=== PATIENT | female | born 1935 | race Caucasian/White ===

== ENCOUNTER 2018-12-15 19:06 | Inpatient (IN) | payer MEDICARE, OTHER | END 2018-12-17 12:56 | disposition home or self-care (01) | LOC: ER FS 19:06 → ICU 21:45 | DX: I21.4 Non-ST elevation (NSTEMI) myocardial infarction (principal); I13.0 Hypertensive heart and chronic kidney disease with heart failure and stage 1 through stage 4 chronic kidney disease, or unspecified chronic kidney disease; I50.21 Acute systolic (congestive) heart failure; N18.9 Chronic kidney disease, unspecified; I42.0 Dilated cardiomyopathy; I48.91 Unspecified atrial fibrillation; J44.9 Chronic obstructive pulmonary disease, unspecified; Z66 Do not resuscitate; I25.10 Atherosclerotic heart disease of native coronary artery without angina pectoris; E03.9 Hypothyroidism, unspecified; R73.9 Hyperglycemia, unspecified; R41.3 Other amnesia; H90.5 Unspecified sensorineural hearing loss; J34.89 Other specified disorders of nose and nasal sinuses; R05 Cough; Z95.810 Presence of automatic (implantable) cardiac defibrillator ==

== ENCOUNTER 2019-03-25 18:12 | Emergency (ER) | payer MEDICARE, OTHER ==
[~2019-03-25] VITALS: Ht 157 cm; Wt 62.0 kg
[~2019-03-25 18:12] MED LIST: ALEN70TA2 PO; AMLO5TAB9 PO; APIX2.5T PO; ATOR20TA66 PO; FURO40TA4 PO; ISOS30TA3 PO; LEVO75TA6 PO; LISI-556 PO; METO-370 PO; NF-METHI10 PO; NITR-65 PO
[2019-03-25] MEDS ORDERED: DILTIAZEM 25 MG/5 ML INJ (CARDIZEM) VIAL IVP ONE (18:45)
[2019-03-25 18:47] LABS: HEMATOCRIT 38 % (35-52); HEMOGLOBIN 12.1 G/DL (11.5-16.0); MEAN CORPUSCULAR HEMOGLOBIN 30 PG (25-34); MEAN CORPUSCULAR VOLUME 93 FL (80-99)
[2019-03-25 18:48] LABS: BASOPHILS % (AUTO) 1 % (0-10); EOSINOPHILS % (AUTO) 1 % (0-10); LYMPHOCYTES % (AUTO) 22 % (12-44); MEAN CORPUSCULAR HGB CONC 32 G/DL (32-36); MEAN PLATELET VOLUME 11.9 FL (7.4-10.4); MONOCYTES % (AUTO) 9 % (0-12); NEUTROPHILS % (AUTO) 67 % (42-75); PLATELET COUNT 273 10^3/uL (130-400); RED CELL DISTRIBUTION WIDTH 15.4 % (10.0-14.5)
[2019-03-25 18:49] LABS: BASOPHILS # (AUTO) 0.1 10^3/uL (0.0-0.1); EOSINOPHILS # (AUTO) 0.1 10^3/uL (0.0-0.3); LYMPHOCYTES # (AUTO) 1.5 X 10^3 (1.0-4.0); MONOCYTES # (AUTO) 0.6 X 10^3 (0.0-1.0); NEUTROPHILS # (AUTO) 4.7 X 10^3 (1.8-7.8)
[2019-03-25 18:50] LABS: INR 1.4 (0.8-1.4); PROTHROMBIN TIME PATIENT 17.9 SEC (12.2-14.7)
--- NOTE | 2019-03-25 18:58 | Diagnostic Imaging Report ---
INDICATION: Shortness of air. Tachycardia. History of atrial fibrillation. COMPARISON: 12/17/2018. FINDINGS: Single frontal radiographic view of the chest was obtained and shows moderate cardiomegaly. Pulmonary vasculature is within normal limits. Lungs show interval improved aeration. There is some minimal residual patchy bibasilar airspace opacity. No large effusion or pneumothorax is seen. Left-sided AICD is noted. Osseous structures show no gross acute abnormalities. IMPRESSION: 1. Overall improved aeration, but with mild residual patchy bibasilar atelectasis. Some component of underlying infiltrate cannot be excluded. 2. Cardiomegaly, but no evidence of overt failure. Dictated by: Dictated on workstation # [id number]
[2019-03-25] MEDS ORDERED: meTOprolol TARTRATE 25 MG (LOPRESSOR) TABLET PO ONE (19:00)
[2019-03-25 19:10] LABS: BILIRUBIN,TOTAL 0.7 MG/DL (0.1-1.0); CALCIUM 9.3 MG/DL (8.5-10.1); CREATININE SERUM 1.73 MG/DL (0.60-1.30); TOTAL PROTEIN 6.7 GM/DL (6.4-8.2)
--- NOTE | 2019-03-25 19:10 | ED Cardiac General ---
History of Present Illness General Chief Complaint: Cardiac/General Problems Stated Complaint: SOA Nursing Triage Note: PT HAS FELT SHORT OF BREATH THE LAST COUPLE OF DAYS. PT HAS A HX OF AFIB. Source: patient, family Exam Limitations: no limitations History of Present Illness Date Seen by Provider: Mar 25, 2019 Time Seen by Provider: 18:00 Initial Comments Patient came into the emergency room with complaint of having shortness of breath for the past 2 days. She told about that to her daughter who brought her to the emergency room. She does have a history of A. fib and on the monitor patient was in A. fib with rapid ventricular rate around 140. Patient had low blood pressure few months ago and so all her blood pressure medications has been stopped including metoprolol. Currently patient is not on any blood pressure medicine and was not on any rate control medications. She has been saturating at 94% on room air. She does take a lactose twice daily. She denies having any chest pain, abdominal pain, unilateral swelling of the legs or leg cramps and denies having any increase in swelling of the legs. Timing/Duration: 1-2 days Severity: mild Modifying Factors: improves with movement Associated Systoms: No Chest Pain, No Cough, No Diaphoresis, No Fever/Chills, No Headaches, No Malaise, No Nausea/Vomiting; Shortness of Air Allergies and Home Medications Allergies Coded Allergies: Penicillins (Verified Allergy, Unknown, 12/15/18) Home Medications Alendronate Sodium 70 Mg Tablet, 70 MG PO Ojeda, (Reported) LAST FILLED #4 Amlodipine Besylate 5 Mg Tablet, 5 MG PO DAILY, (Reported) Apixaban 2.5 Mg Tablet, 2.5 MG PO BID Prescribed by: ALEX CLARK on 12/17/18 1134 Atorvastatin Calcium 20 Mg Tablet, 20 MG PO HS, (Reported) LAST FILLED #90 05-22-17 Furosemide 40 Mg Tablet, 20 MG PO DAILY, (Reported) LAST FILLED #45 05-01-18 & 24 LEFT IN THE BOTTLE TAKES 1/2 (40MG) TABLET Isosorbide Mononitrate 30 Mg Tab.er.24h, 30 MG PO DAILY, (Reported) LAST FILLED #90 01-20-18 & 15 TABS LEFT IN BOTTLE Levothyroxine Sodium 75 Mcg Tablet, 75 MCG PO DAILY, (Reported) LAST FILLED #30 10-15-18 & 22 LEFT IN BOTTLE Lisinopril 5 Mg Tablet, 5 MG PO DAILY, (Reported) LAST FILLED #30 10-15-18 & 21 LEFT IN THE BOTTLE Methimazole 10 Mg Tab, 10 MG PO DAILY, (Reported) LAST FILLED #90 05-01-18 Metoprolol Succinate 50 Mg Tab.er.24h, 50 MG PO DAILY, (Reported) LAST FILLED #90 01-15-18 Nitrofurantoin Monohyd/M-Cryst 100 Mg Capsule, 1 TAB PO BID Prescribed by: ALEX CLARK on 12/17/18 1310 Review of Systems Review of Systems Constitutional: see HPI EENTM: No Symptoms Reported Respiratory: Shortness of Air Cardiovascular: Denies Chest Pain; Irregular Heart Rate Gastrointestinal: Denies See HPI Genitourinary: Denies See HPI Musculoskeletal: No see HPI Skin: no symptoms reported Psychiatric/Neurological: No Symptoms Reported Endocrine: No Symptoms Reported Hematologic/Lymphatic: No Symptoms Reported Past Teiigdc-Hajqhr-Odxigb Hx Patient Social History Alcohol Use: Denies Use Recreational Drug Use: No Smoking Status: Former Smoker Type Used: Cigarettes 2nd Hand Smoke Exposure: No Recent Foreign Travel: No Contact w/Someone Who Travel: No Recent Infectious Disease Expo: No Physical Abuse: No Sexual Abuse: No Mistreated: No Fear: No Immunizations Up To Date Date of Pneumonia Vaccine: Jan 01, 2015 Seasonal Allergies Seasonal Allergies: No Past Medical History Surgeries: Yes (Defibrillator) Cardiac, Defibrillator Respiratory: No Cardiac: No Atrial Fibrillation, Cardiomyopathy, Coronary Artery Disease, Hypertension Neurological: No Genitourinary: No Gastrointestinal: No Musculoskeletal: No Endocrine: Yes Hypothyroidsim HEENT: No Cancer: No Psychosocial: No Integumentary: No Physical Exam Vital Signs Vital Signs - First Documented 03/25/19 18:29 Temp 36.5 Pulse 147 Resp 22 B/P (MAP) 133/75 (94) Pulse Ox 95 O2 Delivery Room Air Capillary Refill : Less Than 3 Seconds Height, Weight, BMI Height: '" Weight: 131lbs. 1.0oz. [id number]; 25.00 BMI Method: General Appearance: No Apparent Distress, WD/WN HEENT: PERRL/EOMI, TMs Normal, Normal ENT Inspection, Pharynx Normal Neck: Full Range of Motion, Normal Inspection, Non Tender Respiratory: Chest Non Tender, Lungs Clear, Normal Breath Sounds, No Accessory Muscle Use, No Respiratory Distress Cardiovascular: No Edema, No Gallop, No JVD, No Murmur, Normal Peripheral Pulses, Irregularly Irregular Gastrointestinal: Normal Bowel Sounds, No Organomegaly, No Pulsatile Mass, Non Tender Extremity: Normal Capillary Refill, Normal Inspection, Normal Range of Motion, Non Tender, No Calf Tenderness, No Pedal Edema Neurologic/Psychiatric: Alert, Oriented x3, No Motor/Sensory Deficits, Normal 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, 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 Norm as Tested Skin: Normal Color, Warm/Dry Progress/Results/Core Measures Results/Orders Lab Results Laboratory Tests Test 03/25/19 18:27 Range/Units White Blood Count 7.0 4.3-11.0 10^3/uL Red Blood Count 4.08 L 4.35-5.85 10^6/uL Hemoglobin 12.1 11.5-16.0 G/DL Hematocrit 38 35-52 % Mean Corpuscular Volume 93 80-99 FL Mean Corpuscular Hemoglobin 30 25-34 PG Mean Corpuscular Hemoglobin Concent 32 32-36 G/DL Red Cell Distribution Width 15.4 H 10.0-14.5 % Platelet Count 273 130-400 10^3/uL Mean Platelet Volume 11.9 H 7.4-10.4 FL Neutrophils (%) (Auto) 67 42-75 % Lymphocytes (%) (Auto) 22 12-44 % Monocytes (%) (Auto) 9 0-12 % Eosinophils (%) (Auto) 1 0-10 % Basophils (%) (Auto) 1 0-10 % Neutrophils # (Auto) 4.7 1.8-7.8 X 10^3 Lymphocytes # (Auto) 1.5 1.0-4.0 X 10^3 Monocytes # (Auto) 0.6 0.0-1.0 X 10^3 Eosinophils # (Auto) 0.1 0.0-0.3 10^3/uL Basophils # (Auto) 0.1 0.0-0.1 10^3/uL Prothrombin Time 17.9 H 12.2-14.7 SEC INR Comment 1.4 0.8-1.4 Sodium Level 142 135-145 MMOL/L Potassium Level 4.0 3.6-5.0 MMOL/L Chloride Level 104 98-107 MMOL/L Carbon Dioxide Level 20 L 21-32 MMOL/L Anion Gap 18 H 5-14 MMOL/L Blood Urea Nitrogen 37 H 7-18 MG/DL Creatinine 1.73 H 0.60-1.30 MG/DL Estimat Glomerular Filtration Rate 28 BUN/Creatinine Ratio 21 Glucose Level 128 H 70-105 MG/DL Calcium Level 9.3 8.5-10.1 MG/DL Corrected Calcium 9.3 8.5-10.1 MG/DL Total Bilirubin 0.7 0.1-1.0 MG/DL Aspartate Amino Transf (AST/SGOT) 32 5-34 U/L Alanine Aminotransferase (ALT/SGPT) 40 0-55 U/L Alkaline Phosphatase 145 H 40-136 U/L Troponin I < 0.30 <0.30 NG/ML Pro-B-Type Natriuretic Peptide 9835.0 H <75.0 PG/ML Total Protein 6.7 6.4-8.2 GM/DL Albumin 4.0 3.2-4.5 GM/DL My Orders Orders - IMER MCGOWAN MD Ekg Tracing (03/25/19 18:34) Cbc With Automated Diff (03/25/19 18:33) Chest 1 View Ap/Pa Only (03/25/19 18:33) Comprehensive Metabolic Panel (03/25/19 18:33) Protime With Inr (03/25/19 18:33) Monitor-Rhythm Ecg Trace Only (03/25/19 18:33) Ed Iv/Invasive Line Start (03/25/19 18:33) Troponin I Fs (03/25/19 18:33) Diltiazem Injection (Cardizem Injection) (03/25/19 18:45) Thyroid Stimulating Hormone (03/25/19 18:39) Probnp Fs (03/25/19 18:39) Metoprolol Tartrate (Ir) Tab (Lopressor (03/25/19 19:00) Medications Given in ED Current Medications Medications Dose Ordered Sig/Barbra Route Start Time Stop Time Status Last Admin Dose Admin Diltiazem HCl 10 mg ONCE ONCE IVP 03/25/19 18:45 03/25/19 18:46 DC 03/25/19 18:40 10 MG Metoprolol Tartrate 25 mg ONCE ONCE PO 03/25/19 19:00 03/25/19 19:01 DC 03/25/19 19:03 25 MG Vital Signs/I&O 12/23/19 12/23/19 18:29 18:45 Temp 36.5 Pulse 147 105 Resp 22 B/P (MAP) 133/75 (94) Pulse Ox 95 O2 Delivery Room Air Blood Pressure Mean: 94 Progress Progress Note : Time: 19:50 Progress Note Patient had a 10 mg of IV Cardizem and was given 25 mg of by mouth metoprolol and her heart rate has been between 9200 and she was in the pacemaker rhythm. Ad vised to the daughter that she needs to be restarted on her metoprolol to keep her heart rate Control. Informed about the lab results and x-ray results. She feels comfortable taking her home. Initial ECG Rhythm: A Fib/Flutter Initial ECG Impression: Nonspecific Changes Initial ECG Comparisson: No Previous ECG Available Departure Impression Primary Impression: Atrial fibrillation Qualified Codes: I48.19 - Other persistent atrial fibrillation Disposition: HOME, SELF-CARE Condition: Improved Departure-Patient Inst. Decision time for Depature: 19:51 Referrals: [facility] (PCP/Family) Primary Care Physician Patient Instructions: Atrial Fibrillation (DC) Add. Discharge Instructions: Follow-up with your primary care doctor next week. Take Metoprolol 25 mg by mouth twice a day. Return to the emergency room if symptoms worsens or is any concern. All discharge instructions reviewed with patient and/or family. Voiced understanding. Scripts Metoprolol Tartrate (Metoprolol Tartrate) 25 Mg Tablet 25 MG PO BID, #60 TAB Prov: IMER MCGOWAN MD 03/25/19 IMER MCGOWAN MD Mar 25, 2019 19:10
[2019-03-25] MEDS ORDERED: METO-333 PO (19:53)
[2019-03-25 20:05] VITALS: BP 123/73
== END 2019-03-25 20:06 | disposition home or self-care (01) ==
LOC: EDUNIT# 18:12 → ER FS 18:14
DX: I48.91 Unspecified atrial fibrillation (principal); I10 Essential (primary) hypertension; I25.10 Atherosclerotic heart disease of native coronary artery without angina pectoris; E03.9 Hypothyroidism, unspecified; Z88.0 Allergy status to penicillin; Z79.01 Long term (current) use of anticoagulants; Z87.891 Personal history of nicotine dependence; Z95.810 Presence of automatic (implantable) cardiac defibrillator
CPT/HCPCS: 36415; 71045; 80053; 83880; 84443; 84484; 85025; 85610; 93005; 93041; 96374

== ENCOUNTER 2019-03-27 16:55 | Inpatient (IN) | payer MEDICARE, OTHER ==
[~2019-03-27] VITALS: Ht 152.4 cm; Wt 57.7 kg
[~2019-03-27 16:55] MED LIST changes: +METO-333 PO
[2019-03-27] MEDS ORDERED: NS IV 500 ML 500 ML IV SCH (17:30)
[2019-03-27 17:56] LABS: HEMATOCRIT 40 % (35-52); HEMOGLOBIN 12.5 G/DL (11.5-16.0); LYMPHOCYTES % (AUTO) 12 % (12-44); MEAN CORPUSCULAR HEMOGLOBIN 30 PG (25-34); MEAN CORPUSCULAR HGB CONC 32 G/DL (32-36); MEAN CORPUSCULAR VOLUME 95 FL (80-99); MEAN PLATELET VOLUME 12.3 FL (7.4-10.4); MONOCYTES % (AUTO) 8 % (0-12); PLATELET COUNT 288 10^3/uL (130-400); RED CELL DISTRIBUTION WIDTH 16.4 % (10.0-14.5); WHITE BLOOD COUNT 8.4 10^3/uL (4.3-11.0)
[2019-03-27 17:57] LABS: BASOPHILS % (AUTO) 0 % (0-10); EOSINOPHILS % (AUTO) 0 % (0-10); MONOCYTES # (AUTO) 0.6 X 10^3 (0.0-1.0); NEUTROPHILS # (AUTO) 6.7 X 10^3 (1.8-7.8); NEUTROPHILS % (AUTO) 80 % (42-75)
[2019-03-27 18:19] LABS: ALBUMIN 3.8 GM/DL (3.2-4.5); BILIRUBIN,TOTAL 1.2 MG/DL (0.1-1.0); CALCIUM 9.3 MG/DL (8.5-10.1); CREATININE SERUM 3.1 MG/DL (0.60-1.30); POTASSIUM 4.6 MMOL/L (3.6-5.0); TOTAL PROTEIN 6.6 GM/DL (6.4-8.2)
[2019-03-27] MEDS ORDERED: fentaNYL INJECTION 100 MCG/2 ML AMP IVP STA (18:21)
--- NOTE | 2019-03-27 18:22 | Diagnostic Imaging Report ---
PROCEDURE: CT abdomen and pelvis without contrast. TECHNIQUE: Multiple contiguous axial images were obtained through the abdomen and pelvis without the use of intravenous contrast. Auto Exposure Controls were utilized during the CT exam to meet ALARA standards for radiation dose reduction. INDICATION: Generalized abdominal pain and back pain, two days history. FINDINGS: Trace abdominal and small-volume pelvic free fluid nonloculated. No loculated fluid collection is found. There is free fluid adjacent to the caudal tip of the right hepatic lobe with right upper quadrant subhepatic inflammatory changes and edema peripheral to the at least partially contracted and likely thick-walled gallbladder. No visualized radiodense intraluminal stone; however, gallbladder ultrasound may be of further benefit. The colon appears nonacute. There is no diverticulitis or appendicitis. There are noninflamed sigmoid diverticula. Uterus is absent. There is no adnexal lesion. There is some renal atrophy without hydronephrosis. There is nonaneurysmal aortoiliac atherosclerosis. There are small basilar pleural effusions nonloculated. There is no bile duct dilatation. The spleen is negative. The pancreas appears nonacute. There is a hyperdense nodule posteriorly at the level of the right labia majora 3.2 x 2.1 cm suggestive of a Bartholin's cyst with a relatively high intracystic proteinaceous component. No adjacent inflammatory changes to suggest its superimposed infection. IMPRESSION: 1. Right upper quadrant inflammatory changes with small-volume nonloculated free fluid. There is a suggestion of thickening of the manjarrez of the gallbladder without visualized stone or obvious biliary dilatation. Consider gallbladder ultrasound as further evaluation. 2. Noninflamed sigmoid diverticulosis. 3. Probable right-sided Bartholin's gland cyst without secondary features of its superimposed infection. 4. Nonobstructive renal atrophy and nonaneurysmal atherosclerosis. Dictated by: Dictated on workstation # [id number]
[2019-03-27 18:25] LABS: CLARITY,URINE CLOUDY; COLOR,URINE DARK YELLOW; GLUCOSE, URINE (UA) NEGATIVE (NEGATIVE); KETONES,URINE NEGATIVE (NEGATIVE); NITRITE,URINE NEGATIVE (NEGATIVE); PH,URINE 5.5 (5-9); PROTEIN,URINE 3+ (NEGATIVE)
[2019-03-27 18:26] LABS: BACTERIA,URINE LARGE /HPF; LEUKOCYTE ESTERASE ,URINE NEGATIVE (NEGATIVE); RBC,URINE 0-2 /HPF; SQUAMOUS EPITHELIAL CELL,UR >50 /HPF
[2019-03-27] MEDS ORDERED: ONDANSETRON 4 MG/2 ML (SDV) Z0FRAN IVP ONE (18:30)
[2019-03-27 18:32] LABS: BILIRUBIN,URINE 2+ (NEGATIVE)
--- NOTE | 2019-03-27 18:40 | ED General ---
General Stated Complaint: SOB,LOWER BACK PAIN Source of Information: Patient, Family History of Present Illness Date Seen by Provider: Mar 27, 2019 Time Seen by Provider: 17:00 Initial Comments Patient has history of A. fib and she was seen in the ER 2 days ago for shortness of breath and increased heart rate. Patient was found to be in A. fib with a rapid irregular rate. Her rate good control with Cardizem and she was taken off the rate control medication by the primary care doctor because of having hypotension with the blood pressure medications. She also has history of hypothyroidism and takes a levothyroxin. Patient's rate was well controlled after Cardizem and was sent with a low-dose of metoprolol 25 mg twice a day. Patient was brought into the emergency room today because of having low back pain and lower abdominal pain and was feeling short of breath. She was tender in the lower abdomen. She feels nauseous but denies having any vomiting. She does not have any midline tenderness of the lumbar spine and does not have any tenderness on palpation on the back. Timing/Duration: 1 Day Severity: Mild Associated Systoms: No Chest Pain; Shortness of Air, Other (low back pain) Allergies and Home Medications Allergies Coded Allergies: Penicillins (Verified Allergy, Unknown, 12/15/18) Home Medications Alendronate Sodium 70 Mg Tablet, 70 MG PO Ojeda, (Reported) LAST FILLED #4 Amlodipine Besylate 5 Mg Tablet, 5 MG PO DAILY, (Reported) Apixaban 2.5 Mg Tablet, 2.5 MG PO BID Prescribed by: ALEX CLARK on 12/17/18 1134 Atorvastatin Calcium 20 Mg Tablet, 20 MG PO HS, (Reported) LAST FILLED #90 05-22-17 Furosemide 40 Mg Tablet, 20 MG PO DAILY, (Reported) LAST FILLED #45 05-01-18 & 24 LEFT IN THE BOTTLE TAKES 1/2 (40MG) TABLET Isosorbide Mononitrate 30 Mg Tab.er.24h, 30 MG PO DAILY, (Reported) LAST FILLED #90 01-20-18 & 15 TABS LEFT IN BOTTLE Levothyroxine Sodium 75 Mcg Tablet, 75 MCG PO DAILY, (Reported) LAST FILLED #30 10-15-18 & 22 LEFT IN BOTTLE Lisinopril 5 Mg Tablet, 5 MG PO DAILY, (Reported) LAST FILLED #30 10-15-18 & 21 LEFT IN THE BOTTLE Methimazole 10 Mg Tab, 10 MG PO DAILY, (Reported) LAST FILLED #90 05-01-18 Metoprolol Succinate 50 Mg Tab.er.24h, 50 MG PO DAILY, (Reported) LAST FILLED #90 01-15-18 Metoprolol Tartrate 25 Mg Tablet, 25 MG PO BID Prescribed by: IMER MCGOWAN on 03/25/191952 Nitrofurantoin Monohyd/M-Cryst 100 Mg Capsule, 1 TAB PO BID Prescribed by: ALEX CLARK on 12/17/18 1310 Review of Systems Review of Systems Constitutional: see HPI EENTM: no symptoms reported Respiratory: short of breath Cardiovascular: no symptoms reported; No chest pain Gastrointestinal: abdominal pain, loss of appetite Genitourinary: no symptoms reported Musculoskeletal: back pain Skin: no symptoms reported Psychiatric/Neurological: No Symptoms Reported Past Dtrngza-Zzltbq-Amlzyp Hx Patient Social History Type Used: Cigarettes 2nd Hand Smoke Exposure: No Immunizations Up To Date Date of Pneumonia Vaccine: Jan 01, 2015 Seasonal Allergies Seasonal Allergies: No Past Medical History Surgeries: Yes (Defibrillator) Cardiac, Defibrillator Respiratory: No Cardiac: No Atrial Fibrillation, Cardiomyopathy, Coronary Artery Disease, Hypertension Neurological: No Genitourinary: No Gastrointestinal: No Musculoskeletal: No Endocrine: Yes Hypothyroidsim HEENT: No Cancer: No Psychosocial: No Integumentary: No Physical Exam Vital Signs Vital Signs - First Documented 03/27/19 17:10 Temp 36.9 Pulse 129 Resp 12 B/P (MAP) 98/58 (71) O2 Delivery Room Air Capillary Refill : Height, Weight, BMI Height: '" Weight: 131lbs. 1.0oz. [id number]; 25.00 BMI Method: General Appearance: Mild Distress Eyes: Bilateral Eye Normal Inspection, Bilateral Eye PERRL, Bilateral Eye EOMI HEENT: TMs Normal, Normal ENT Inspection Neck: Full Range of Motion, Normal Inspection Respiratory: Chest Non Tender, Lungs Clear, Normal Breath Sounds, No Accessory Muscle Use, No Respiratory Distress Cardiovascular: Regular Rate, Rhythm, No Edema, No Gallop, No JVD, No Murmur, Normal Peripheral Pulses Gastrointestinal: Normal Bowel Sounds, Soft, Tenderness (in lower abdomen) Rectal: Heme Positive Stool Back: Normal Inspection Extremity: Normal Inspection Neurologic/Psychiatric: Alert, Oriented x3, No Motor/Sensory Deficits, Normal 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, 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 Norm as Tested Skin: Normal Color Focused Exam Lactate Level 03/27/19 19:10: Lactic Acid Level 7.42*H Lactic Acid Level Laboratory Tests Test 03/27/19 19:10 Lactic Acid Level 7.42 MMOL/L (0.50-2.00) *H Progress/Results/Core Measures Suspected Sepsis SIRS Temperature: Pulse: Respiratory Rate: Laboratory Tests 03/27/19 17:40: White Blood Count 8.4 Blood Pressure / Mean: 03/27/19 19:10: Lactic Acid Level 7.42*H Laboratory Tests 03/27/19 17:40: Creatinine 3.10#H, Platelet Count 288, Total Bilirubin 1.2H Results/Orders Lab Results Laboratory Tests Test 03/27/19 17:40 03/27/19 18:13 03/27/19 19:10 Range/Units White Blood Count 8.4 4.3-11.0 10^3/uL Red Blood Count 4.16 L 4.35-5.85 10^6/uL Hemoglobin 12.5 11.5-16.0 G/DL Hematocrit 40 35-52 % Mean Corpuscular Volume 95 80-99 FL Mean Corpuscular Hemoglobin 30 25-34 PG Mean Corpuscular Hemoglobin Concent 32 32-36 G/DL Red Cell Distribution Width 16.4 H 10.0-14.5 % Platelet Count 288 130-400 10^3/uL Mean Platelet Volume 12.3 H 7.4-10.4 FL Neutrophils (%) (Auto) 80 H 42-75 % Lymphocytes (%) (Auto) 12 12-44 % Monocytes (%) (Auto) 8 0-12 % Eosinophils (%) (Auto) 0 0-10 % Basophils (%) (Auto) 0 0-10 % Neutrophils # (Auto) 6.7 1.8-7.8 X 10^3 Lymphocytes # (Auto) 1.0 1.0-4.0 X 10^3 Monocytes # (Auto) 0.6 0.0-1.0 X 10^3 Eosinophils # (Auto) 0.0 0.0-0.3 10^3/uL Basophils # (Auto) 0.0 0.0-0.1 10^3/uL Sodium Level 143 135-145 MMOL/L Potassium Level 4.6 3.6-5.0 MMOL/L Chloride Level 102 98-107 MMOL/L Carbon Dioxide Level 15 L 21-32 MMOL/L Anion Gap 26 H 5-14 MMOL/L Blood Urea Nitrogen 54 H 7-18 MG/DL Creatinine 3.10 #H 0.60-1.30 MG/DL Estimat Glomerular Filtration Rate 14 BUN/Creatinine Ratio 17 Glucose Level 141 H 70-105 MG/DL Calcium Level 9.3 8.5-10.1 MG/DL Corrected Calcium 9.5 8.5-10.1 MG/DL Total Bilirubin 1.2 H 0.1-1.0 MG/DL Aspartate Amino Transf (AST/SGOT) 104 H 5-34 U/L Alanine Aminotransferase (ALT/SGPT) 101 H 0-55 U/L Alkaline Phosphatase 190 H 40-136 U/L Total Protein 6.6 6.4-8.2 GM/DL Albumin 3.8 3.2-4.5 GM/DL Lipase 10 8-78 U/L Urine Color DARK YELLOW Urine Clarity CLOUDY H Urine pH 5.5 5-9 Urine Specific [place] >=1.030 1.016-1.022 Urine Protein 3+ H NEGATIVE Urine Glucose (UA) NEGATIVE NEGATIVE Urine Ketones NEGATIVE NEGATIVE Urine Nitrite NEGATIVE NEGATIVE Urine Bilirubin 2+ H NEGATIVE Urine Urobilinogen 1.0 < = 1.0 MG/DL Urine Leukocyte Esterase NEGATIVE NEGATIVE Urine RBC (Auto) TRACE H NEGATIVE Urine RBC 0-2 /HPF Urine WBC 5-10 H /HPF Urine Squamous Epithelial Cells >50 H /HPF Urine Crystals NONE /LPF Urine Bacteria LARGE H /HPF Urine Casts PRESENT /LPF Urine Hyaline Casts 10-25 H /LPF Urine Mucus NEGATIVE /LPF Urine Culture Indicated NO Lactic Acid Level 7.42 *H 0.50-2.00 MMOL/L My Orders Orders - IMER MCGOWAN MD Cbc With Automated Diff (03/27/19 17:27) Comprehensive Metabolic Panel (03/27/19 17:27) Chest 1 View Ap/Pa Only (03/27/19 17:27) Urinalysis (03/27/19 17:27) Ns Iv 500 Ml (Sodium Chloride 0.9%) (03/27/19 17:30) Ct Abdomen/Pelvis Wo (03/27/19 17:27) Fentanyl Injection (Sublimaze Injection (03/27/19 18:21) Ondansetron Injection (Zofran Injectio (03/27/19 18:30) Meropenem (Merrem 1000 Mg) (03/27/19 18:45) Lipase (03/27/19 18:40) Ns Iv 1000 Ml (Sodium Chloride 0.9%) (03/27/19 18:45) Meropenem (Merrem 500 Mg) (03/27/19 18:43) Water (Sterile) For Injection (Sterile W (03/27/19 18:43) Lactic Acid Analyzer (03/27/19 18:55) Ns Iv 1000 Ml (Sodium Chloride 0.9%) (03/27/19 19:45) Fentanyl Injection (Sublimaze Injection (03/27/19 19:45) Norepinephrine (Levophed) (03/27/19 20:15) Ns (Ivpb) (Sodium Chloride 0.9%) (03/27/19 20:15) Medications Given in ED Current Medications Medications Dose Ordered Sig/Barbra Route Start Time Stop Time Status Last Admin Dose Admin Meropenem 1000 mg/ Sterile Water 20 ml @ 240 mls/hr ONCE ONCE IV 03/27/19 18:45 03/27/19 18:49 DC 03/27/19 18:56 240 MLS/HR Ondansetron HCl 4 mg ONCE ONCE IVP 03/27/19 18:30 03/27/19 18:31 DC 03/27/19 18:28 4 MG Sterile Water 20 ml @ ud STK-MED ONCE .ROUTE 03/27/19 18:43 03/27/19 18:48 DC 03/27/19 18:57 240 MLS/HR Vital Signs/I&O 03/27/19 17:10 Temp 36.9 Pulse 129 Resp 12 B/P (MAP) 98/58 (71) O2 Delivery Room Air Capillary Refill : Point of Care Testing Fecal Occult: Positive Progress Note #1: Time: 18:50 Progress Note Patient's daughter was informed about having acute cholecystitis. We'll give a liter fluid bolus to the patient and given meropenem and will get her admitted to the hospital at [facility]. Progress Note #2: Time: 20:41 Progress Note Discussed with the family about the lab results and informed about having severe sepsis with lactic acid of 7.2 and association with increased mortality. Discussed about the CODE STATUS and daughter said she is a DO NOT RESUSCITATE. Consults Consults #1: Consulting Physician: DIMITRIS JOE MD Consults Notes will admit to ICU. Consults #2: Consulting Physician: EMIL GAINES DO Consults Notes ADVICED TO HOLD ON ELIQUIS AND WILL TAKE HER GB OUT ON MONDAY. Departure Communication (Admissions) Time/Spoke to Admitting Phy: 19:30 WILL ADMIT TO ICU Time/Spoke to Consulting Phy: 19:45 HOLD ON ELIQUIS AND WILL TAKE HER GB OUT ON MONDAY Impression Primary Impression: Severe sepsis Additional Impression: Acute cholecystitis Disposition: ADMITTED INPATIENT Condition: Critical Admissions Decision to Admit Reason: Admit from ER (General) Decision to Admit/Date: Mar 27, 2019 Time/Decision to Admit Time: 19:00 Departure-Patient Inst. Referrals: [facility] (PCP/Family) Primary Care Physician IMER MCGOWAN MD Mar 27, 2019 18:40
[2019-03-27] MEDS ORDERED: MEROPENEM 500 MG VIAL (MERREM) IV ONE (18:43)
[2019-03-27] MEDS ORDERED: WATER (STERILE) FOR INJECTION 20 ML ONE (18:43)
[2019-03-27] MEDS ORDERED: MEROPENEM 1,000 MG in WATER (STERILE) FOR INJECTION 20 ML IV ONE (18:45)
[2019-03-27] MEDS ORDERED: NS IV 1000 ML 1,000 ML IV SCH ×3 (18:45→22:00)
--- NOTE | 2019-03-27 18:48 | Diagnostic Imaging Report ---
INDICATION: Abdominal pain, back pain. COMPARISON: 03/25. EXAMINATION: Single view of the chest was obtained. FINDINGS: Pacemaker device unremarkable. Heart is enlarged. There is background COPD, chronic. There is no pneumothorax. Some prominence of the lung markings, chronic. Some mild bibasilar atelectatic changes. IMPRESSION: Stable chest. Tiny amounts of pleural fluid, chronic. Air trapping and upper limits heart size and mild atelectasis. Dictated by: Dictated on workstation # [id number]
[2019-03-27] MEDS ORDERED: fentaNYL INJECTION 100 MCG/2 ML AMP IVP ONE (19:45)
[2019-03-27] MEDS ORDERED: NOREPINEPHRINE 4 MG/4 ML (LEVOPHED) AMP IV ONE (20:15)
[2019-03-27] MEDS ORDERED: NS (IVPB) 250 ML ONE (20:15)
[2019-03-27] MEDS ORDERED: HALOPERIDOL 5 MG/ML (HALDOL) AMP ONE (20:48)
[2019-03-27] MEDS ORDERED: NOREPINEPHRINE 4 MG in NS (IVPB) 250 ML IV SCH (21:00)
[2019-03-27] MEDS ORDERED: HALOPERIDOL 5 MG/ML (HALDOL) AMP IM ONE (21:00)
[2019-03-27] MEDS ORDERED: HALOPERIDOL 5 MG/ML (HALDOL) AMP IV ONE (21:00)
[2019-03-27 21:45] VITALS: BP 75/48
[2019-03-27] MEDS ORDERED: LACTATED RINGERS 1,000 ML IV ONE (21:58)
[2019-03-27 22:00] VITALS: BP 105/53
[2019-03-27 22:15] VITALS: BP 94/85
[2019-03-27 22:30] VITALS: BP 80/48
[2019-03-27 22:45] VITALS: BP 75/48
[2019-03-27 23:00] VITALS: BP 57/50
--- NOTE | 2019-03-27 23:08 | Consultation - Surgery ---
History of Present Illness History of Present Illness Patient Consulted On(tiffany/time) 03/27/19 23:00 Date Seen by Provider: Mar 27, 2019 Time Seen by Provider: 23:00 History of Present Illness Consult requested by Dr. Feng for possible cholecystitis, central line. Patient is an 83 year old female transferred from [facility]. She is unable to answer questions at this time. She received some Haldol en route to hospital. She is hypotensive requiring pressor support. No family at bedside. Reported to have lower abdominal pain and back pain. Afib on eliquis. Had ct scan that showed questionable thickening of the gallbladder with some free fluid in the right upper quadrant. Allergies and Home Medications Allergies Coded Allergies: Penicillins (Verified Allergy, Unknown, 12/15/18) Home Medications Alendronate Sodium 70 Mg Tablet, 70 MG PO Ojeda, (Reported) LAST FILLED #4 Amlodipine Besylate 5 Mg Tablet, 5 MG PO DAILY, (Reported) Apixaban 2.5 Mg Tablet, 2.5 MG PO BID Prescribed by: ALEX CLARK on 12/17/18 1134 Atorvastatin Calcium 20 Mg Tablet, 20 MG PO HS, (Reported) LAST FILLED #90 05-22-17 Furosemide 40 Mg Tablet, 20 MG PO DAILY, (Reported) LAST FILLED #45 05-01-18 & 24 LEFT IN THE BOTTLE TAKES 1/2 (40MG) TABLET Isosorbide Mononitrate 30 Mg Tab.er.24h, 30 MG PO DAILY, (Reported) LAST FILLED #90 18 & 15 TABS LEFT IN BOTTLE Levothyroxine Sodium 75 Mcg Tablet, 75 MCG PO DAILY, (Reported) LAST FILLED #30 10-15-18 & 22 LEFT IN BOTTLE Lisinopril 5 Mg Tablet, 5 MG PO DAILY, (Reported) LAST FILLED #30 10-15-19 & 21 LEFT IN THE BOTTLE Methimazole 10 Mg Tab, 10 MG PO DAILY, (Reported) LAST FILLED #90 05-01-18 Metoprolol Succinate 50 Mg Tab.er.24h, 50 MG PO DAILY, (Reported) LAST FILLED #90 01-15-18 Metoprolol Tartrate 25 Mg Tablet, 25 MG PO BID Prescribed by: IMER MCGOWAN on 03/25/191952 Nitrofurantoin Monohyd/M-Cryst 100 Mg Capsule, 1 TAB PO BID Prescribed by: ALEX CLARK on 12/17/18 1310 Patient Home Medication List Home Medication List Reviewed: Yes Past Kzbogqs-Nwrgqr-Fbfhuu Hx Patient Social History Alcohol Use: Denies Use Recreational Drug Use: No Smoking Status: Former Smoker Type Used: Cigarettes 2nd Hand Smoke Exposure: No Recent Foreign Travel: No Contact w/Someone Who Travel: No Recent Infectious Disease Expo: No Recent Hopitalizations: No Immunizations Up To Date Date of Pneumonia Vaccine: Jan 01, 2015 Seasonal Allergies Seasonal Allergies: No Surgeries History of Surgeries: Yes (Defibrillator) Surgeries: Cardiac, Defibrillator Respiratory History of Respiratory Disorde: No Cardiovascular History of Cardiac Disorders: No Cardiac Disorders: Atrial Fibrillation, Cardiomyopathy, Coronary Artery Disease, Hypertension Neurological History of Neurological Disord: No Genitourinary History of Genitourinary Disor: No Gastrointestinal History of Gastrointestinal Di: No Musculoskeletal History of Musculoskeletal Dis: No Endocrine History of Endocrine Disorders: Yes Endocrine Disorders: Hypothyroidsim HEENT History of HEENT Disorders: No Cancer History of Cancer: No Psychosocial History of Psychiatric Problem: No Integumentary History of Skin or Integumenta: No Blood Transfusions History of Blood Disorders: No Reviewed Nursing Assessment Reviewed/Agree w Nursing PMH: Yes Family Medical History Significant Family History: No Pertinent Family Hx Review of Systems-General ROS-Unable to Obtain: due to patient condition Physical Exam-General Problems Physical Exam Vital Signs Vital Signs - First Documented 03/27/19 03/27/19 17:10 21:02 Temp 36.9 Pulse 129 Resp 12 B/P (MAP) 98/58 (71) Pulse Ox 95 O2 Delivery Room Air O2 Flow Rate 2.00 Capillary Refill : Less Than 3 Seconds General Appearance: mild distress (moving all extremities, does not follow dir ections completely) HEENT: PERRL/EOMI Neck: supple Respiratory: other (slightly labored breathing) Cardiovascular: tachycardia, irregularly irregular Gastrointestinal: soft, distended (minimally) Back: other (does not seem to have pain with palpation) Extremities: other (moves all 4 extremities) Neurologic/Psychiatric: No alert, No normal mood/affect, No oriented x 3 Skin: pallor Lymphatic: no adenopathy Data Review Labs Laboratory Tests 03/27/19 17:40: White Blood Count 8.4, Red Blood Count 4.16L, Hemoglobin 12.5, Hematocrit 40, Mean Corpuscular Volume 95, Mean Corpuscular Hemoglobin 30, Mean Corpuscular Hemoglobin Concent 32, Red Cell Distribution Width 16.4H, Platelet Count 288, Mean Platelet Volume 12.3H, Neutrophils (%) (Auto) 80H, Lymphocytes (%) (Auto) 12, Monocytes (%) (Auto) 8, Eosinophils (%) (Auto) 0, Basophils (%) (Auto) 0, Neutrophils # (Auto) 6.7, Lymphocytes # (Auto) 1.0, Monocytes # (Auto) 0.6, Eosinophils # (Auto) 0.0, Basophils # (Auto) 0.0, Sodium Level 143, Potassium Level 4.6, Chloride Level 102, Carbon Dioxide Level 15L, Anion Gap 26H, Blood Urea Nitrogen 54H, Creatinine 3.10#H, Estimat Glomerular Filtration Rate 14, BUN/Creatinine Ratio 17, Glucose Level 141H, Calcium Level 9.3, Corrected Calcium 9.5, Total Bilirubin 1.2H, Aspartate Amino Transf (AST/SGOT) 104H, Alanine Aminotransferase (ALT/SGPT) 101H, Alkaline Phosphatase 190H, Total Protein 6.6, Albumin 3.8, Lipase 10 03/27/19 18:13: Urine Color DARK YELLOW, Urine Clarity CLOUDYH, Urine pH 5.5, Urine Specific Parsons >=1.030, Urine Protein 3+H, Urine Glucose (UA) NEGATIVE, Urine Ketones NEGATIVE, Urine Nitrite NEGATIVE, Urine Bilirubin 2+H, Urine Urobilinogen 1.0, Urine Leukocyte Esterase NEGATIVE, Urine RBC (Auto) TRACEH, Urine RBC 0-2, Urine WBC 5-10H, Urine Squamous Epithelial Cells >50H, Urine Crystals NONE, Urine Bacteria LARGEH, Urine Casts PRESENT, Urine Hyaline Casts 10-25H, Urine Mucus NEGATIVE, Urine Culture Indicated NO 03/27/19 19:10: Lactic Acid Level 7.42*H 03/27/19 22:00: Lactic Acid Level 11.87*H Assessment/Plan Assessment/Plan Assessment/Plan sepsis possible source cholecystitis hypotension tachycardia hypoxia afib on eliquis patient requiring pressors and left femoral vein u/s guided placed. 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 EMIL GAINES DO Mar 27, 2019 23:08
[2019-03-28] MEDS ORDERED: MEROPENEM 500 MG/SWFI 10 ML IV PUSH IV SCH ×2
--- NOTE | 2019-03-28 07:49 | Discharge Summary ---
Discharge Summary Date of Admission Mar 27, 2019 at 19:20 Date of Discharge Mar 28, 2019 Comfort Measures/ End of Life Care: Comfort Measures Date of : Mar 28, 2019 Pt admitted from ER with cholecystitis and intermittent rapid ventricular response, but after admission had acute worsening and hypotension requiring vasopressors, followed shortly by hypoxia not resolved even with non-invasive positive pressure ventilation. Her code status was DNR/DNI from time of admission, and when she had acute worsening, family requested to discontinue bipap and initiate comfort measures but patient did pass even before bipap was removed. Discharge Diagnosis Cholecystitis Septic shock Acute on chronic renal failure Atrial fibrillation Respiratory failure DIMITRIS JOE MD Mar 28, 2019 07:49
--- NOTE | 2019-03-28 19:25 | OPERATIVE REPORT ---
DATE OF SERVICE: 03/27/2019 PREPROCEDURE DIAGNOSES: Sepsis, hypotension. POSTPROCEDURE DIAGNOSES: Sepsis, hypotension. PROCEDURE: Left femoral vein ultrasound-guided central line placement. SURGEON: Emil Clark DO ANESTHESIA: 1% lidocaine. ESTIMATED BLOOD LOSS: Minimal. COMPLICATIONS: None. INDICATIONS: The patient is an 83-year-old female transferred from [facility]. She is septic and hypotensive, needing central line placement for pressors and further medical management. She understands risks, this was placed emergently. The patient is on anticoagulation; therefore, left femoral vein was used. DESCRIPTION OF PROCEDURE: The patient was prepped and draped in sterile fashion. Timeout was performed. Local anesthetic of 1% lidocaine was used to anesthetize the left groin under ultrasound guidance. The left femoral vein was then accessed under ultrasound guidance. Dark nonpulsatile blood was withdrawn. Guidewire was inserted and the needle was removed. An 11 blade scalpel was used to make a skin incision. Dilator was then advanced over the guidewire and removed. The triple lumen catheter was then advanced over the guidewire and the wire was removed. All ports were flushed and accessed without difficulty. The catheter was sutured into place and sterile bandage was applied. The patient tolerated procedure well without any complications. Job ID: [id number] DocumentID: [id number] Dictated Date: 03/28/2019 14:25:24 Solid Waste Disposal Manager Date: 03/28/2019 19:24:55 Dictated By: EMIL CLARK DO
== END 2019-03-28 00:02 | disposition expired | DRG 871 ==
LOC: EDUNIT# 16:55 → ER FS 16:56 → ICU 19:20
PROVIDERS: ADMIT Family Medicine; ATTEND Family Medicine
PROC: 06HY33Z Insertion of Infusion Device into Lower Vein, Percutaneous Approach (ICD-10-PCS; principal; 2019-03-27)
DX: A41.9 Sepsis, unspecified organism (principal); R65.21 Severe sepsis with septic shock; K81.0 Acute cholecystitis; I48.91 Unspecified atrial fibrillation; I25.10 Atherosclerotic heart disease of native coronary artery without angina pectoris; I10 Essential (primary) hypertension; E03.9 Hypothyroidism, unspecified; Z66 Do not resuscitate
CPT/HCPCS: 36415; 71045; 74176; 80053; 81000; 82274; 83605; 83690; 84484; 85025; 93005; 94660; 96361; 96372; 96374; 96375; 96376